=== PATIENT | female | born 1965 | race Caucasian/White ===

== ENCOUNTER 2017-03-10 21:42 | Emergency (ER) | payer MEDICAID ==
[~2017-03-10] VITALS: Ht 160 cm; Wt 65.8 kg
[2017-03-10 21:44] VITALS: BP_SYST 113
[2017-03-10 21:48] VITALS: BP_SYST 113
[2017-03-10] MEDS ORDERED: DIPH-TET-PERTUS Vaccine 0.5 ML VIAL (ADACEL) I.M. ONE (22:00)
[2017-03-10 22:20] VITALS: BP_SYST 112
== END 2017-03-10 22:20 | disposition home or self-care (01) ==
LOC: SED 21:42
DX: L03.113 Cellulitis of right upper limb (principal); Z88.0 Allergy status to penicillin
CPT/HCPCS: 81025; 90715; 99283